=== PATIENT | female | born 1995 | race Caucasian/White ===

== ENCOUNTER 2020-06-12 00:24 | Inpatient (IN) | payer OTHER ==
[~2020-06-12] VITALS: Ht 160 cm; Wt 45.4 kg
[~2020-06-12 00:24] MED LIST: COLACE 100MG C100 MG PO; IBUPROFEN600 MG PO; NORCO 5-325 TA1 EACH PO; PRAMET FA TAB1 EA PO; TYLENOL 500 MG500 MG PO; ZANTAC150 MG PO
[2020-06-12 00:53] LABS: HEMOGLOBIN 13.1 gm/dl (12.3-15.3); RED BLOOD COUNT 4.35 M/UL (4.00-5.10); WHITE BLOOD COUNT 18.7 K/UL (4.5-11.0)
[2020-06-12 01:07] LABS: BUN/CREATININE RATIO 17 (0-10)
[2020-06-12] MEDS ORDERED: SUBOXONE 8 MG-1 EACH PO (08:22)
[2020-06-13 05:58] LABS: HEMOGLOBIN 10.2 gm/dl (12.3-15.3); RED BLOOD COUNT 3.46 M/UL (4.00-5.10)
[2020-06-13 06:19] LABS: BUN/CREATININE RATIO 25 (0-10)
[2020-06-14] MEDS ORDERED: IBUPROFEN800 MG PO (11:42)
[2020-06-14] MEDS ORDERED: GABAPENTIN100 MG PO (11:42)
[2020-06-14] MEDS ORDERED: ASPIRIN 325MG325 MG PO (12:02)
== END 2020-06-14 14:02 | disposition home or self-care (01) | DRG 493 ==
LOC: ER1 00:24 → CDU 02:08 → M/S 19:42
PROVIDERS: Emergency Medicine; Orthopaedic Surgery; ADMIT Surgery
PROC: 0QSG06Z Reposition Right Tibia with Intramedullary Internal Fixation Device, Open Approach (ICD-10-PCS; principal; 2020-06-12 15:11)
DX: S82.251A Displaced comminuted fracture of shaft of right tibia, initial encounter for closed fracture (principal); F11.20 Opioid dependence, uncomplicated; F15.20 Other stimulant dependence, uncomplicated; V89.2XXA Person injured in unspecified motor-vehicle accident, traffic, initial encounter; Y92.410 Unspecified street and highway as the place of occurrence of the external cause; Z90.49 Acquired absence of other specified parts of digestive tract; F17.210 Nicotine dependence, cigarettes, uncomplicated; S00.81XA Abrasion of other part of head, initial encounter; S02.2XXA Fracture of nasal bones, initial encounter for closed fracture
CPT/HCPCS: 36415; 36600; 70450; 71045; 71260; 72125; 72128; 72131; 72170; 73560; 73590; 76000; 80048; 80053; 80307; 81001; 82803; 83605; 84703; 85025; 85027; 85730; 86850; 86900; 86901; 96374; 96375; 96376; 97163; 97165; 97530-GP-CQ; 99285; C1713; G0378; G0480; J0171; J0690; J1100; J1170; J1650; J1885; J2001; J2250; J2270; J2405; J2704; J2795; J3010; J3370; J3480; J7120; Q9967; U0002

== ENCOUNTER 2020-06-25 14:25 | Inpatient (IN) | payer OTHER ==
[~2020-06-25] VITALS: Ht 160 cm; Wt 45.4 kg
[~2020-06-25 14:25] MED LIST changes: +ASPIRIN 325MG325 MG PO; +GABAPENTIN100 MG PO; +IBUPROFEN800 MG PO; +SUBOXONE 8 MG-1 EACH PO
[2020-06-25 17:49] LABS: HEMOGLOBIN 9.9 gm/dl (12.3-15.3); RED BLOOD COUNT 3.4 M/UL (4.00-5.10); WHITE BLOOD COUNT 11.4 K/UL (4.5-11.0)
[2020-06-25 18:10] LABS: BUN/CREATININE RATIO 25 (0-10)
[2020-06-26 03:40] LABS: HEMOGLOBIN 9.4 gm/dl (12.3-15.3); RED BLOOD COUNT 3.23 M/UL (4.00-5.10)
[2020-06-26 04:06] LABS: BUN/CREATININE RATIO 28 (0-10)
[2020-06-27 04:42] LABS: HEMOGLOBIN 8.7 gm/dl (12.3-15.3); RED BLOOD COUNT 2.99 M/UL (4.00-5.10)
[2020-06-27 04:48] LABS: WHITE BLOOD COUNT 8.4 K/UL (4.5-11.0)
[2020-06-27 05:00] LABS: BUN/CREATININE RATIO 23 (0-10)
[2020-06-28 02:48] LABS: HEMOGLOBIN 9.4 gm/dl (12.3-15.3); RED BLOOD COUNT 3.23 M/UL (4.00-5.10); WHITE BLOOD COUNT 8.1 K/UL (4.5-11.0)
[2020-06-28 03:06] LABS: BUN/CREATININE RATIO 28 (0-10)
[2020-06-29 05:21] LABS: HEMOGLOBIN 8.5 gm/dl (12.3-15.3); RED BLOOD COUNT 2.94 M/UL (4.00-5.10); WHITE BLOOD COUNT 7.9 K/UL (4.5-11.0)
[2020-06-29 05:38] LABS: BUN/CREATININE RATIO 29 (0-10)
[2020-06-30 03:53] LABS: HEMOGLOBIN 8.6 gm/dl (12.3-15.3); RED BLOOD COUNT 2.94 M/UL (4.00-5.10); WHITE BLOOD COUNT 6.9 K/UL (4.5-11.0)
[2020-06-30 04:41] LABS: BUN/CREATININE RATIO 20 (0-10)
[2020-07-01 05:13] LABS: HEMOGLOBIN 8.1 gm/dl (12.3-15.3); RED BLOOD COUNT 2.77 M/UL (4.00-5.10); WHITE BLOOD COUNT 7.7 K/UL (4.5-11.0)
[2020-07-02 05:53] LABS: BUN/CREATININE RATIO 30 (0-10)
--- NOTE | 2020-07-02 05:53 | NUR ---
RESTED INTERMITTENTLY T/O NIGHT, COMPLAIN OF PAIN IN RIGHT LOWER EXTREMETY, NO OTHER COMPLAINTS, VITAL SIGNS STABLE, DRESSING C/D/I NO ACUTE DISTRESS NOTED
[2020-07-03 04:12] LABS: RED BLOOD COUNT 2.79 M/UL (4.00-5.10); WHITE BLOOD COUNT 8.7 K/UL (4.5-11.0)
[2020-07-03 04:34] LABS: BUN/CREATININE RATIO 25 (0-10)
[2020-07-05 06:07] LABS: HEMOGLOBIN 8.9 gm/dl (12.3-15.3); WHITE BLOOD COUNT 7.5 K/UL (4.5-11.0)
[2020-07-05 06:14] LABS: RED BLOOD COUNT 3.15 M/UL (4.00-5.10)
[2020-07-05 06:55] LABS: BUN/CREATININE RATIO 25 (0-10)
[2020-07-07 04:35] LABS: BUN/CREATININE RATIO 24 (0-10)
--- NOTE | 2020-07-07 17:29 | NUR ---
1725: PATIENT HAS RESTED WELL, SINCE RETURNING FROM THE OR. HAS CONTINUED TO REQUIRE FREQUENT PAIN MEDICATION THIS SHIFT. PATIENT STATES THAT SHE EXPRESSED HER PAIN WITH DR RATLIFF BEFORE SURGERY THIS MORNING. NO CHANGES NOTED TO PAIN MED REGIMEN. DR RATLIFF PLANS TO TAKE THE PATIENT BACK TO THE OR ON SUNDAY FOR ANOTHER VAC CHANGE AND THEN A SKIN GRAFT ON THE FOLLOWING SUNDAY. OTHERWISE, NO OTHER CLINICAL CHANGES NOTED TODAY.
[2020-07-08 03:27] LABS: WHITE BLOOD COUNT 6.2 K/UL (4.5-11.0)
[2020-07-08 03:33] LABS: RED BLOOD COUNT 2.83 M/UL (4.00-5.10)
[2020-07-08 03:53] LABS: BUN/CREATININE RATIO 34 (0-10)
[2020-07-09 06:03] LABS: BUN/CREATININE RATIO 23 (0-10)
[2020-07-10 06:07] LABS: BUN/CREATININE RATIO 18 (0-10)
[2020-07-10 16:14] LABS: HEMOGLOBIN 7.7 gm/dl (12.3-15.3); RED BLOOD COUNT 2.77 M/UL (4.00-5.10); WHITE BLOOD COUNT 7.8 K/UL (4.5-11.0)
[2020-07-11 05:13] LABS: HEMOGLOBIN 7.5 gm/dl (12.3-15.3); RED BLOOD COUNT 2.67 M/UL (4.00-5.10)
[2020-07-11 05:14] LABS: WHITE BLOOD COUNT 5.6 K/UL (4.5-11.0)
[2020-07-11 05:42] LABS: BUN/CREATININE RATIO 23 (0-10)
[2020-07-12 04:48] LABS: RED BLOOD COUNT 2.88 M/UL (4.00-5.10); WHITE BLOOD COUNT 5.9 K/UL (4.5-11.0)
[2020-07-12 05:19] LABS: BUN/CREATININE RATIO 24 (0-10)
[2020-07-13 05:57] LABS: BUN/CREATININE RATIO 21 (0-10)
--- NOTE | 2020-07-13 10:26 | NUR ---
Spoke with MARGARET Lyons re: PICC line. Per discussion, pt known to be IV drug user. Serena to discuss with oncoming MD regarding need/cancellation of picc line order.
[2020-07-15 07:50] LABS: RED BLOOD COUNT 3.39 M/UL (4.00-5.10); WHITE BLOOD COUNT 6.9 K/UL (4.5-11.0)
[2020-07-15] MEDS ORDERED: HYDROCODON-ACE1 EAC4 PO (09:00)
[2020-07-15 09:02] LABS: BUN/CREATININE RATIO 30 (0-10)
== END 2020-07-15 15:09 | disposition home or self-care (01) | DRG 264 ==
LOC: ER1 14:25 → MED SURG 4 20:58 → CDU 20:58 → MED SURG 4 06-26 01:01
PROVIDERS: Internal Medicine; Orthopaedic Surgery; Physician Assistant Medical; ADMIT Family Medicine
PROC: 0KBS0ZZ Excision of Right Lower Leg Muscle, Open Approach (ICD-10-PCS; principal; 2020-06-26 13:27)
PROC: 0QBG0ZZ Excision of Right Tibia, Open Approach (ICD-10-PCS; 2020-06-28)
PROC: 0QPG04Z Removal of Internal Fixation Device from Right Tibia, Open Approach (ICD-10-PCS; 2020-06-28)
PROC: 0QBG0ZZ Excision of Right Tibia, Open Approach (ICD-10-PCS; 2020-06-30)
PROC: 0KBS0ZZ Excision of Right Lower Leg Muscle, Open Approach (ICD-10-PCS; 2020-06-30)
PROC: 0KBS0ZZ Excision of Right Lower Leg Muscle, Open Approach (ICD-10-PCS; 2020-07-02)
PROC: 0KXS0ZZ Transfer Right Lower Leg Muscle, Open Approach (ICD-10-PCS; 2020-07-05)
PROC: 2W1QX6Z Compression of Right Lower Leg using Pressure Dressing (ICD-10-PCS; 2020-07-07)
PROC: 0HBHXZZ Excision of Right Upper Leg Skin, External Approach (ICD-10-PCS; 2020-07-09)
PROC: 0HRKX74 Replacement of Right Lower Leg Skin with Autologous Tissue Substitute, Partial Thickness, External Approach (ICD-10-PCS; 2020-07-09 10:38)
DX: I97.89 Other postprocedural complications and disorders of the circulatory system, not elsewhere classified (principal); E44.0 Moderate protein-calorie malnutrition; T81.42XA Infection following a procedure, deep incisional surgical site, initial encounter; I96 Gangrene, not elsewhere classified; L76.82 Other postprocedural complications of skin and subcutaneous tissue; F19.10 Other psychoactive substance abuse, uncomplicated; G89.4 Chronic pain syndrome; F17.210 Nicotine dependence, cigarettes, uncomplicated; Z87.81 Personal history of (healed) traumatic fracture; G89.28 Other chronic postprocedural pain; D64.9 Anemia, unspecified; E87.6 Hypokalemia; Z98.890 Other specified postprocedural states; Z20.822 Contact with and (suspected) exposure to COVID-19; T85.9XXA Unspecified complication of internal prosthetic device, implant and graft, initial encounter
CPT/HCPCS: 36415; 73590; 75635; 76000; 80048; 80053; 80202; 83605; 84703; 85025; 85027; 85610; 85652; 86140; 87070; 87205; 93926; 96365; 96367; 99284; J0690; J0696; J1100; J1170; J1644; J1650; J1885; J2001; J2250; J2270; J2405; J2704; J2710; J3010; J3370; J7030; J7050; J7070; J7120; Q0177; Q9967; U0002